=== PATIENT | male | born 1965 | race Caucasian/White ===

== ENCOUNTER 2021-02-03 16:05 | Emergency (ER) | payer OTHER ==
[~2021-02-03] VITALS: Ht 170.2 cm; Wt 112.0 kg
[~2021-02-03 16:05] MED LIST: AMITRIPTYLIN25 MG PO; ASPIRIN EC LOW81 MG PO; BENADRYL25 MG PO; BENZTROPINE0.5 MG PO; CELEXA20 MG PO; DOCUSATE SOD100 MG PO; LOVASTATIN40 M1 PO; PERPHENAZINE8 MG PO; PRILOSEC20 MG/CAP PO; RANITIDINE150 M1 PO; RISPERDAL2 MG PO; TEGRETOL200 MG PO
[2021-02-03] MEDS ORDERED: LABETALOL200 MG PO (16:43)
[2021-02-03] MEDS ORDERED: [UNRECOGNIZED DRUG - OTHER] IM (16:46)
[2021-02-03] MEDS ORDERED: BACLOFEN10 MG PO (16:46)
[2021-02-03] MEDS ORDERED: TAMSULOSIN HCL0.4 MG PO (16:47)
[2021-02-03] MEDS ORDERED: SM ALLERGY50 MCG/ACT (16:48)
[2021-02-03] MEDS ORDERED: DIPHENHYDRAM25 MG PO (16:49)
[2021-02-03] MEDS ORDERED: ATROVENT H17 MCG/ACT (16:50)
[2021-02-03] MEDS ORDERED: GUAIFENESI PO (16:53)
[2021-02-03] MEDS ORDERED: NAPROXEN250 MG PO (16:53)
[2021-02-03] MEDS ORDERED: BISACODYL5 MG PO (16:54)
[2021-02-03] MEDS ORDERED: MIRTAZAPINE15 MG PO (16:54)
[2021-02-03] MEDS ORDERED: MOTRIN800 MG PO (17:51)
[2021-02-03 18:09] VITALS: BP 156/83
== END 2021-02-03 18:29 | disposition home or self-care (01) | DRG 605 ==
LOC: ED 16:05
DX: S70.01XA Contusion of right hip, initial encounter (principal); I10 Essential (primary) hypertension; J44.9 Chronic obstructive pulmonary disease, unspecified; F31.9 Bipolar disorder, unspecified; K21.9 Gastro-esophageal reflux disease without esophagitis; B19.20 Unspecified viral hepatitis C without hepatic coma; W10.9XXA Fall (on) (from) unspecified stairs and steps, initial encounter; Y92.149 Unspecified place in prison as the place of occurrence of the external cause

== ENCOUNTER 2024-06-10 22:27 | Emergency (ER) | payer OTHER ==
[~2024-06-10] VITALS: Ht 167.6 cm; Wt 125.0 kg
[~2024-06-10 22:27] MED LIST changes: +ABILIFY20 MG PO; +ADVAIR DISK1 INH; +ATORVASTATIN CA40 MG PO; +ATROVENT H17 MCG/ACT; +BACLOFEN10 MG PO; +BAYER ASPIRIN E81 MG PO; +BISACODYL5 MG PO; +CALCIUM500 M5 PO; +DIPHENHYDRAM25 MG PO; +DIPHENHYDRAMINE50 M3; +GUAIFENESI PO; +HALOPER DEC100 MG/ML IM; +KRISTALOSE10 GM PO; +LABETALOL200 MG PO; +LISI20TA5 PO; +MIRTAZAPINE15 MG PO; +MOTRIN800 MG PO; +NAPROXEN250 MG PO; +PROTONIX40 M2 PO; +PROVENTIL HFA IN; +SM ALLERGY50 MCG/ACT; +SPIRONO/HCTZ PO; +TAMSULOSIN HCL0.4 MG PO; +TOLNAFTATE XX; +TOPROL XL25 M1 PO; +VENLAFAXINE HC150 MG PO; +VITAMIN D325 MCG; +[UNRECOGNIZED DRUG - OTHER] IM
[2024-06-10 23:00] LABS: BASO% 0.2 % (0-3); EOS% 0.2 % (0-8); HEMATOCRIT 37.8 % (39.0-50.0); HEMOGLOBIN 12.8 g/dl (14.0-18.0); IMMATURE GRANULOCYTES 0.6 % (0.0-5.0); MEAN CELL VOLUME 89.2 fL CALC (80.0-100.0); MEAN CORPUSCULAR HGB 30.2 pG CALC (26.0-32.0); MEAN CORPUSCULAR HGB CONC 33.9 g/dL CAL (32.0-36.0); MONO% 6.8 % (2-13); NEUT# 10.81 thou/uL (1.82-7.42); NEUT% 84.2 % (42-76); RED BLOOD COUNT 4.24 mill/uL (4.70-6.10); RED CELL DISTRI WIDTH 14.2 % (11.5-15.5)
[2024-06-10 23:15] LABS: INTERNATIONAL NORMALIZED RATIO 1.1 RATIO (0.7-1.3)
[2024-06-10 23:19] LABS: PROTHROMBIN TIME 10.3 SECONDS (9.0-12.5)
[2024-06-10 23:20] LABS: ALBUMIN 4.1 g/dL (3.2-5.0); ALKALINE PHOSPHATASE 120 u/l (38-126); BUN 12 mg/dL (9-20); BUN/CREATININE RATIO 13 (12-20 (CALC)); CALCULATED LDLCHOLESTEROL 42 mg/dL (62-129 (CALC)); CARBON DIOXIDE 29 mmol/l (22-30); CHLORIDE 97 mmol/l (95-108); CHOLESTEROL HDL RATIO 2.4 (<4.4 (CALC)); CREATININE 0.9 mg/dL (0.7-1.3); ESTIMATED GFR 99 ML/MIN (>=90 (CALC)); HDL CHOLESTEROL 40 mg/dL (39.0-59.0); POTASSIUM 3.9 mmol/l (3.5-5.1); SGOT/AST 31 u/l (17-59); TOTAL CHOLESTEROL 98 mg/dl (0-199); TOTAL PROTEIN 6.8 g/dL (6.3-8.2); TOTAL TRIGLYCERIDES 78 mg/dl (0-149); VLDL CHOLESTROL 16 mg/dl (8-62 (CALC))
[2024-06-10 23:21] LABS: ANION GAP 7 (6-22 (CALC)); BILIRUBIN, TOTAL 1.1 mg/dL (0.2-1.3); SODIUM 129 mmol/l (137-146)
[2024-06-10 23:45] VITALS: BP 94/67
[2024-06-11 00:16] VITALS: BP 102/61
[2024-06-11] MEDS ORDERED: SODIUM CHLORIDE 0.9% 1,000 ML IV ONE (00:20)
[2024-06-11 00:28] VITALS: BP 115/57
[2024-06-11 00:30] VITALS: BP 108/57
[2024-06-11 01:01] VITALS: BP 118/78
[2024-06-11 01:23] LABS: URINE BILIRUBIN - DIPSTICK Negative (NEGATIVE); URINE BLOOD DIPSTICK Negative (NEGATIVE); URINE COLOR Yellow; URINE GLUCOSE - DIPSTICK Negative (NEGATIVE); URINE KETONE Negative (NEGATIVE); URINE LEUK ESTERASE Negative (NEGATIVE); URINE NITRITE - DIPSTICK Negative (Negative); URINE PH 6.5 (4.5-8.0); URINE PROTEIN - DIPSTICK Negative (NEG-TRACE); URINE UROBILINOGEN - DIPSTICK 0.2 E.U./dL (0.2)
== END 2024-06-11 02:50 | disposition designated cancer center or children's hospital (05) | DRG 316 ==
LOC: ED 22:27
PROVIDERS: Family Medicine
DX: I95.9 Hypotension, unspecified (principal); I10 Essential (primary) hypertension; J44.9 Chronic obstructive pulmonary disease, unspecified; K21.9 Gastro-esophageal reflux disease without esophagitis; B19.20 Unspecified viral hepatitis C without hepatic coma; F31.9 Bipolar disorder, unspecified; F20.9 Schizophrenia, unspecified; Z72.0 Tobacco use
CPT/HCPCS: Q9967